=== PATIENT | male | born 1950 | race African-American/Black ===

== ENCOUNTER 2019-01-14 06:55 | Day surgery (SDC) | payer OTHER ==
--- OUTSIDE RECORDS SUMMARY | 2019-01-14 06:57 | XMS REPORT ---
:1950 [facility] Address [address] [place] [address] Dr. Cerna. [address] [place] [id number] Care Team Providers Name Role Phone Unavailable Unavailable Unavailable Problems This patient has no known problems. Allergies, Adverse Reactions, Alerts This patient has no known allergies or adverse reactions. Medications This patient has no known medications.
--- OUTSIDE RECORDS SUMMARY | 2019-01-14 06:57 | XMS REPORT | Summary of Care ---
:1950 Author Organization [facility] Address [address] [place] [address] Functional Status Name Dates Details Functional status health issues are not documented Status: Name Dates Details Cognitive status health issues are not documented Status: Problems Name Dates Details Active medical history not documented Status: Medications Name Dates Details Amlodipine Besy-Benazepril HCl - 10-20 MG Oral Capsule Refills: 0 Active Lipitor 20 MG Oral Tablet Refills: 0 Active Lozol TABS Refills: 0 Active Phen/Chlor HC 5-2-2.5 MG/5ML SYRP Refills: 0 Active Allergies and Adverse Reactions Name Dates Details No Known Drug Allergies (Allergy) Status: Active Past Medical History Name Dates Details History of High cholesterol (272.0, E78.00) Status: Resolved History of hypertension (V12.59, Z86.79) Status: Resolved History of Leg pain (729.5, M79.606) Status: Resolved History of shortness of breath (V13.89, Z87.898) Status: Resolved Procedures Procedure Dates Details History of Amputation Of Leg Below Knee Completed Immunization Name Dates Details Immunizations not documented Family History Name Dates Details Family history of Kidney cancer, primary, with metastasis from kidney to other site (189.0, C64.9) Status: Active Name Dates Details Family history of leukemia (V16.6, Z80.6) Status: Active Social History Name Dates Details - Status: Name Dates Details Former smoker Vital Signs Date Test Result Details No Known Vitals to report Results Date Description Value Details Results not documented Plan of Care Name Dates Details Planned Observations Planned Goals not documented Instructions Name Dates Details Instructions not documented Encounters Appointment; AFSHAN DEAN M.D. On: 09-May-2016 10:15 Encounter Diagnosis: Problem not documented Appointment; AFSHAN DEAN M.D. On: 10-May-2016 7:00 Encounter Diagnosis: Problem not documented Appointment; MAURICIO CARMICHAEL P.A. On: 16-May-2016 9:00 Encounter Diagnosis: Problem not documented Appointment; AFSHAN DEAN M.D. On: 26-May-2016 9:30 Encounter Diagnosis: Problem not documented Appointment; AFSHAN DEAN M.D. On: 08-Jun-2016 10:30 Encounter Diagnosis: Problem not documented Appointment; JENNA DE GUZMAN M.D. On: 09-Jun-2016 10:45 Encounter Diagnosis: Problem not documented Appointment; [facility] On: 22-Jun-2016 10:30 Encounter Diagnosis: Problem not documented Appointment; AFSHAN DEAN M.D. On: 22-Jun-2016 10:30 Encounter Diagnosis: Problem not documented
[2019-01-14] MEDS ORDERED: Ringers Lactate 1,000 ML IV ONE (07:32)
[2019-01-14] MEDS ORDERED: PROPOFOL 200 MG/20 ML VIAL IV ONE (08:20)
[2019-01-14] MEDS ORDERED: LIDOCAINE 1% MPF 5 ML VIAL ONE (08:20)
--- NOTE | 2019-01-14 20:07 | OP ---
Surgeon: Gary Lemus MD Procedure Performed: Esophagogastroduodenoscopy. Performing Physician: Gary Lemus M.D. Indication For Procedure: History of Wang's. Plan For Anesthesia: Monitored anesthesia care. Complexity: High due to patient's COPD, the patient has to be admitted in the hospital. Technique: After obtaining informed consent from the patient explaining risks and complications, whi ch include, but are not limited to bleeding, infection, perforation, and anesthesia complication, pat ient was placed in the left lateral position and sedation was given. The scope was inserted into the mouth and carefully guided up to the second portion of the duodenum. There was actually active blee ding seen in the stomach. This was treated. After the completion of procedure all diagnostic and th erapeutic maneuvers, scope and equipment were withdrawn and procedure terminated in a safe manner. Findings: Esophagus: No gross lesions seen in the upper or mid esophagus. In the distal esophagus a small hiatal hernia seen. Evidence of Wang's mucosa seen. However, it was quite small. [place] classification C1M1, biopsies taken. Stomach: Mild patchy erythema seen in the body and antrum. Biopsies taken. At the gastric incisura a small AVM with active oozing was visualized. First the bleeding was controlled and then this was treated with ablation with APC. Treatment was successful. Duodenum: The bulb and second portion appeared normal. Complications: None. Tolerance To Anesthesia: Excellent. Postop Diagnoses: Bleeding gastric AVM status post treatment, gastritis, hiatal hernia, history of B arrett's. Plan: 1.Await pathology results. 2.Continue oral PPI. 3.Follow up in the GI Clinic in 1 to 2 weeks. US/MODL Voice ID: [id number] Report ID: [id number]
== END 2019-01-14 09:30 | disposition home or self-care (01) ==
LOC: OR 06:55
PROVIDERS: ATTEND Internal Medicine Gastroenterology
PROC: 0DB68ZX Excision of Stomach, Via Natural or Artificial Opening Endoscopic, Diagnostic (ICD-10-PCS; 2019-01-14)
PROC: 0DB58ZX Excision of Esophagus, Via Natural or Artificial Opening Endoscopic, Diagnostic (ICD-10-PCS; 2019-01-14)
PROC: 0W3P8ZZ Control Bleeding in Gastrointestinal Tract, Via Natural or Artificial Opening Endoscopic (ICD-10-PCS; principal; 2019-01-14 08:00)
DX: K31.811 Angiodysplasia of stomach and duodenum with bleeding (principal); K29.50 Unspecified chronic gastritis without bleeding; K44.9 Diaphragmatic hernia without obstruction or gangrene; Z87.19 Personal history of other diseases of the digestive system; I10 Essential (primary) hypertension; J44.9 Chronic obstructive pulmonary disease, unspecified; K21.9 Gastro-esophageal reflux disease without esophagitis; Z79.82 Long term (current) use of aspirin; Z79.899 Other long term (current) drug therapy
CPT/HCPCS: 43255; 43239; 88305; 88312; 88313; J2704